=== PATIENT | female | born 2000 | race African-American/Black ===

== ENCOUNTER 2022-07-06 17:44 | Emergency (ER) | payer OTHER ==
[2022-07-06] MEDS ORDERED: IBUPROFEN 800 MG TABLET PO STA (18:23)
[2022-07-06] MEDS ORDERED: DEXAMETHASONE 10 MG/ML VIAL PO STA (18:23)
[2022-07-06] MEDS ORDERED: AMOXICILLIN 250 MG CAPSULE PO STA (18:23)
[2022-07-06] MEDS ORDERED: CHERRY SYRUP 10 ML UDC PO ONE (18:23)
--- NOTE | 2022-07-06 18:27 | ED Physician Documentation ---
PD HPI HEENT - Stated complaint Stated Complaint: SORE THROAT - Chief complaint Chief Complaint: Heent - History obtained from History obtained from: Patient - Additional information Additional information: Patient is a 22-year-old female presenting for evaluation of sore throat that is been present for 4 to 5 days. She reports pain with swallowing despite use of Tylenol which she last took at 2 PM. She has been able to eat and drink. She denies recent illness with fever, cough or congestion.She is also tried NyQuil without any improvement. 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 Review of Systems Constitutional: denies: Fever Throat: reports: Sore throat Cardiac: denies: Chest pain / pressure Respiratory: denies: Dyspnea GI: denies: Abdominal Pain Musculoskeletal: denies: Back pain Neurologic: denies: Headache PD PAST MEDICAL HISTORY - Present Medications Home Medications: Ambulatory Orders Medication Instructions Recorded Confirmed Amoxicillin 500 mg PO BID 10 Days #20 cap 07/06/22 Ibuprofen [Motrin] 1 tablet PO Q8H PRN #30 tablet 07/06/22 - Allergies Allergies/Adverse Reactions: Allergies Allergy/AdvReac Type Severity Reaction Status Date / Time No Known Drug Allergies Allergy Verified 07/06/22 18:12 PD ED PE NORMAL - General General: Alert and oriented X 3, No acute distress, Well developed/nourished - HEENT HEENT: Atraumatic, Other (Left tonsillar swelling, left anterior cervical adenopathy, mild palatal petechiae; No peritonsillar abscess) - Neck Neck: Supple, no meningeal sign - Cardiac Cardiac: RRR - Respiratory Respiratory: No respiratory distress, Clear bilaterally - Derm Derm: Warm and dry - Neuro Neuro: Normal speech Results - Vitals Vitals: Vital Signs - 24 hr 07/06/22 07/06/22 18:09 18:55 Temperature 37.6 C 37.0 C Heart Rate 104 H 78 Respiratory 18 19 Rate Blood Pressure 136/95 H 122/68 O2 Saturation 99 100 Oxygen O2 Source Room air - Labs Labs: Laboratory Tests 07/06/22 18:13 Group A Strep Rapid Negative PD Medical Decision Making - ED course ED course: And is a 22-year-old female presenting for evaluation of sore throat. She is slightly tachycardic but otherwise well-appearing and not septic. She has normal voice. She does have a left tonsillar swelling. She also has mild palatal petechiae and I am concerned therefore for strep infection. Although her rapid strep is negative I think clinically her exam suggest a strep infectio n. Have also given her a dose of Decadron for inflammation.I will start her on antibiotics. Patient counseled on need to complete her antibiotics as well as concerning symptoms to return for. No signs of airway compromise or deep space infection at this time. Departure - Departure Disposition: 01 Home, Self Care Clinical Impression: Strep pharyngitis Condition: Stable Instructions: ED Strep Pharyngitis Poss Prescriptions: Amoxicillin 500 mg PO BID 10 Days #20 cap Ibuprofen [Motrin] 1 tablet PO Q8H PRN #30 tablet PRN Reason: PAIN &/OR FEVER Comments: I suspect that your sore throat is related to a strep infection and I am going to start you on an antibiotic. I also given you a dose of Decadron to help with the swelling and inflammation. At this time I do not see an abscess that would require drainage but would recommend You return to the ER if you notice any worsening symptoms. I sent your prescription to [facility] in [place]. I have also given you a work note for several days. I would recommend sticking with a liquid or soft diet. It is important to stay hydrated. Forms: Activity restrictions
[2022-07-06 18:42] LABS: RAPID STREP SCREEN Negative (Negative)
[2022-07-06 18:56] VITALS: BP 122/68
== END 2022-07-06 19:00 | disposition home or self-care (01) ==
LOC: ED 17:44
DX: J02.0 Streptococcal pharyngitis (principal)
CPT/HCPCS: 87070; 87430; 99283; A9270